=== PATIENT | female | born 1945 | race Caucasian/White ===

== ENCOUNTER → 2017-10-22 16:37 | Outpatient (CLI) | payer MEDICARE, BC | END | disposition home or self-care (01) | LOC: D.US 16:30 | DX: M79.604 Pain in right leg (principal) ==

== ENCOUNTER → 2017-11-01 15:04 | Outpatient (CLI) | payer MEDICARE, BC | END | disposition home or self-care (01) | LOC: D.MRI 15:04 | DX: M25.561 Pain in right knee (principal) ==